=== PATIENT | female | born 1990 | race American Indian/Alaskan Native ===

== ENCOUNTER 2018-03-29 13:20 | Emergency (ER) | payer SELFPAY ==
[2018-03-29 13:36] VITALS: BP 114/77
[2018-03-29] MEDS ORDERED: MOTRIN PO ONE (13:36)
--- NOTE | 2018-03-29 14:22 | Emergency Department Report ---
HPI - General Chief Complaint: Dental/Oral Time Seen by Provider: 03/29/18 14:10 - HPI HPI: This is a 28-year-old female here report that she has left dental pain that is radiating into her left ear. She said that it feels like it is going up in her head and then on for a week. Denies any medical problem. Denies any fever or chills. Patient reports that last menstrual period was 03/28/2018. Denies any nasal congestion or runny nose. She denies any sore throat, cough or wheezing. Pain is 8/10 and achy worse with eating. OTC to her medication not helping. ED Past Medical Hx - Past Medical History Previous Medical History?: No - Surgical History Past Surgical History?: No - Family History Family history: hypertension - Social History Smoking Status: Current Every Day Smoker Substance Use Type: None - Medications Home Medications: Home Medications Medication Instructions Recorded Confirmed Last Taken Type Acetaminophen/Codeine [Tylenol 1 tab PO Q6H PRN #12 tab 03/29/18 Unknown Rx /Codeine # 3 tab] Amoxicillin [Amoxicillin TAB] 875 mg PO BID 10 Days #20 tablet 03/29/18 Unknown Rx Ibuprofen [Motrin] 600 mg PO Q8H PRN #15 tablet 03/29/18 Unknown Rx ED Review of Systems ROS: Stated complaint: TOOTHACHE/EAR PAIN/HEADACHE Other details as noted in HPI Constitutional: denies: chills, fever Eyes: denies: eye pain, eye discharge, vision change ENT: dental pain. denies: ear pain, throat pain, hearing loss, epistaxis, congestion Respiratory: denies: cough, shortness of breath, SOB with exertion, SOB at rest , stridor, wheezing Cardiovascular: denies: chest pain, palpitations Gastrointestinal: denies: nausea, vomiting Musculoskeletal: denies: back pain, joint swelling, arthralgia Skin: denies: rash, lesions Neurological: headache. denies: weakness, numbness, paresthesias, confusion, abnormal gait, vertigo Physical Exam - Physical Exam Vital Signs: Vital Signs 03/29/18 13:33 Temperature 98.4 F Pulse Rate 70 Respiratory 16 Rate Blood Pressure 114/77 O2 Sat by Pulse 99 Oximetry General: This is a 28-year-old female well-nourished well-developed in no acute distress. Patient is nontoxic in appearance Physical Exam: Head: Normocephalic atraumatic. Normal exam Ears:BIateral TM pearly pedroza . Vinod EAC with normal exam. No mastoid bone tenderness. Mouth: Moist, no pharyngeal erythema or exudate . Tongue is normal and oral airways patent. Uvula is midline. No abscess noted but noted dental tenderness around tooth #17 . Noted dental cavities to several teeth without any pulp exposure. Lip is normal. Neck: Nontender to palpate, supple, normal range of motion. No adenopathy. No c- spine tenderness. Nose: Bilateral nasal mucosa normal exam maxillary and frontal sinuses non- tender to palpate. Eyes: Bilateral Sclerae and conjunctiva without injection. Bilateral pupils equal and reactive to light. Bilateral lids are normal. Normal accommodation.BEOMI Lungs: Clear to auscultate bilaterally, no rhonchi wheezes or rales. Normal work of breathing and no chest wall tenderness CV: S1, S2. Regular rate and rhythm negative murmur. Capillary refill is less than 3 seconds Neurological: GCS of 15, speech is clear and fluid, gait is normal and normal reflexes. Extremity: No clubbing, cyanosis or edema. +2 pulses in all extremities Skin: Clean dry and intact, no rashes or lesions ED Course Vital Signs 03/29/18 13:33 Temperature 98.4 F Pulse Rate 70 Respiratory 16 Rate Blood Pressure 114/77 O2 Sat by Pulse 99 Oximetry - Reevaluation(s) Reevaluation #1: 03/29/18 14:46 She is stable throughout ED course. ED Medical Decision Making - Medical Decision Making This is a 28-year-old female here reports until pain that radiated into her left ear and upper left head. She is here to be evaluated and she does not have a dentist. Assessment/plan 1: Toothache-positive dental tenderness at tooth #17. No induration or swelling. Patient to start on Motrin for mild pain and Tylenol 3 for moderate to severe pain 2: Gingivitis/dental caries-patient referred to dentist. Patient to start on amoxicillin. Discussed the patient a diagnosis and treatment plan and she is to follow up with dentist for further evaluation and treatment of toothache. Patient irrigated exam is normal and her neurological exam is normal with no abnormality to head. I discussed with her that she should start taking antibiotic and called [facility] to schedule an appointment for follow-up visit and she voiced understanding. Patient discharged home on amoxicillin, Tylenol 3 and Motrin Critical care attestation.: If time is entered above; I have spent that time in minutes in the direct care of this critically ill patient, excluding procedure time. ED Disposition Clinical Impression: Dental caries, Gingivitis, Tooth ache Disposition: TO HOME OR SELFCARE Is pt being admited?: No Does the pt Need Aspirin: No Condition: Stable Instructions: Dental Caries (ED), Toothache (ED), Gingivitis (ED) Additional Instructions: Please follow up with dentist as discussed. See alternative dentist and discharge instruction paperwork if needed. Take Motrin for mild to moderate pain and please take this medication with food. Take Tylenol No. 3 for severe pain and please do not drive or operate heavy machinery while taking this medication. Take amoxicillin as prescribed. Please see floss twice daily Gargle Peridex mouthwash twice daily Referrals: PRIMARY CARE, [Primary Care Provider] - 2-3 Days [facility] [Outside] - 2-3 Days [facility] [Outside] - 2-3 Days [facility] [Outside] - 2-3 Days Forms: Work/School Release Form(ED)
== END 2018-03-29 15:01 | disposition home or self-care (01) ==
LOC: ED 13:20
DX: K02.9 Dental caries, unspecified (principal); K05.10 Chronic gingivitis, plaque induced; F17.200 Nicotine dependence, unspecified, uncomplicated
CPT/HCPCS: 99282